=== PATIENT | female | born 1970 | race Caucasian/White ===

== ENCOUNTER 2018-02-13 21:06 | Emergency (ER) | payer SELFPAY ==
[2018-02-13 21:15] VITALS: BP 143/64
== END 2018-02-14 02:00 | disposition left against medical advice (07) ==
LOC: EDBD → ED 21:06
DX: K08.89 Other specified disorders of teeth and supporting structures (principal); Z53.21 Procedure and treatment not carried out due to patient leaving prior to being seen by health care provider

== ENCOUNTER 2018-06-30 08:01 | Emergency (ER) | payer SELFPAY ==
[2018-06-30] MEDS ORDERED: ASPIRIN PO ONE (08:26)
[2018-06-30 08:48] LABS: Basophils % (Auto) 0.6 % (0.0-1.8); Eosinophils # (Auto) 0.4 K/mm3 (0.0-0.4); Eosinophils % (Auto) 4.4 % (0.0-4.3); Hematocrit 37.5 % (30.3-42.9); Hemoglobin 12.8 gm/dl (10.1-14.3); Lymphocytes # (Auto) 1.9 K/mm3 (1.2-5.4); Lymphocytes % (Auto) 23.8 % (13.4-35.0); Mean Corpuscular HGB Conc 34 % (30-34); Mean Corpuscular Hemoglobin 27 pg (28-32); Mean Corpuscular Volume 80 fl (79-97); Monocytes # (Auto) 0.6 K/mm3 (0.0-0.8); Monocytes % (Auto) 7.5 % (0.0-7.3); Platelet Count 310 K/mm3 (140-440); Red Blood Count 4.71 M/mm3 (3.65-5.03); Red Cell Distribution Width 15.9 % (13.2-15.2)
[2018-06-30 09:02] LABS: BUN/Creatinine Ratio 18; Blood Urea Nitrogen 11 mg/dL (7-17); Calcium 9.2 mg/dL (8.4-10.2); Hemolysis Index 0
--- NOTE | 2018-06-30 09:39 | XRay Report ---
ROUTINE CHEST, TWO VIEWS: HISTORY: chest pain. The trachea, heart, mediastinal contour, lung levy and bony thorax are unremarkable. IMPRESSION: Unremarkable chest x-ray.
[2018-06-30] MEDS ORDERED: PEPCID IV ONE (10:00)
[2018-06-30] MEDS ORDERED: TORADOL IV ONE (10:00)
--- NOTE | 2018-06-30 10:03 | Emergency Department Report ---
Blank Doc - Documentation Documentation: Patient is a 48-year-old female who is presenting with multiple complaints. Patient states approximately 2 days ago she started getting some pain in her left back that that has radiated to underneath the left axilla radiating to the chest. Patient states she feels pain in her left upper extremity as well. Patient feels very nervous and anxious. Patient states the pain has been constant. Patient states there is some pain when she takes a deep breath as well. Patient denies nausea vomiting and diarrhea. Patient now also has some lower abdominal discomfort as well. She denies dysuria. On focused physical exam patient's lungs are clear heart tones within normal limits abdomen is soft and tender in the suprapubic region. Patient had a cardiac workup started from triage which the initial workup has been negative. Patient has a negative troponin EKG is within normal limits as well as a normal chest x-ray. The patient does appear to be in moderate distress secondary to pain. Because of the patient's pain in the chest radiating to the back a CTA will be ordered and the CT also will be done of the abdomen and pelvis with contrast as well.
--- NOTE | 2018-06-30 11:08 | Emergency Department Report ---
ED Chest Pain HPI - General Chief Complaint: Chest Pain Stated Complaint: LEFT ARM/CHEST PAIN Time Seen by Provider: 06/30/18 09:49 Source: patient, family Mode of arrival: Wheelchair Limitations: No Limitations - History of Present Illness Initial Comments: Patient is a 48-year-old female who is presenting with multiple complaints. Patient states approximately 2 days ago she started getting some pain in her left back that that has radiated to underneath the left axilla radiating to the chest. Patient states she feels pain in her left upper extremity as well. Patient feels very nervous and anxious. Patient states the pain has been constant. Patient states there is some pain when she takes a deep breath as well. Patient denies nausea vomiting and diarrhea. Patient now also has some lower abdominal discomfort as well. She denies dysuria. Reports pain 9/10 crampy, achy and sharp. No alleviating or exacerbating factors. MD Complaint: chest pain Onset/Timin -: days(s) Onset: during rest Pain Location: left chest Pain Radiation: LUE, back, abdomen, other (patient also reports pain to left leg.) Severity: severe Severity scale (0 -10): 9 Quality: aching, sharp, other (cramp in) Improves With: nothing Worsens With: nothing Context: other (none) re: denies: nausea, vomting, diaphoresis, dyspnea, sense of impending doom Other Symptoms: burping. denies: cough, fever, syncope, rash, palpitations Treatments Prior to Arrival: none Aspirin use within the Past 7 Days: (0) No - Related Data On Oral Contraceptives: No Previous Rx's Medication Instructions Recorded Last Taken Type Acetaminophen [Acetaminophen ER] 650 mg PO Q8H PRN #15 tablet.er 06/30/18 Unknown Rx Famotidine [Pepcid] 20 mg PO BID 15 Days #30 tablet 06/30/18 Unknown Rx Allergies Allergy/AdvReac Type Severity Reaction Status Date / Time No Known Allergies Allergy Verified 02/13/18 21:12 Heart Score - HEART Score History: Slightly suspicious EKG: Normal Age: 45-65 Risk factors: No known risk factors Troponin: < normal limit HEART Score: 1 ED Review of Systems ROS: Stated complaint: LEFT ARM/CHEST PAIN Other details as noted in HPI Constitutional: denies: chills, fever Eyes: denies: eye pain ENT: denies: throat pain, congestion Respiratory: denies: cough, shortness of breath, SOB with exertion, SOB at rest , stridor, wheezing Cardiovascular: chest pain. denies: palpitations, dyspnea on exertion, orthopnea, edema, syncope Gastrointestinal: abdominal pain. denies: nausea, vomiting, diarrhea, constipation, hematemesis, melena, hematochezia Genitourinary: denies: urgency, dysuria, frequency, hematuria, discharge Musculoskeletal: back pain, arthralgia. denies: joint swelling Skin: denies: rash, lesions Neurological: headache. denies: weakness, numbness, paresthesias, abnormal gait , vertigo ED Past Medical Hx - Past Medical History Previous Medical History?: Yes Additional medical history: Chronic back pain - Surgical History Past Surgical History?: Yes Hx Appendectomy: Yes - Family History Family history: hypertension - Social History Smoking Status: Never Smoker Substance Use Type: Non Opiate Pain (patient reports that she took some Tylenol but it did not help her pain.) - Medications Home Medications: Home Medications Medication Instructions Recorded Confirmed Last Taken Type Acetaminophen [Acetaminophen ER] 650 mg PO Q8H PRN #15 tablet.er 06/30/18 Unknown Rx Famotidine [Pepcid] 20 mg PO BID 15 Days #30 tablet 06/30/18 Unknown Rx ED Physical Exam - General Limitations: No Limitations General appearance: alert, in no apparent distress - Head Head exam: Present: atraumatic, normocephalic, normal inspection, other (normal exam) - Eye Eye exam: Present: normal appearance, PERRL, EOMI. Absent: nystagmus Pupils: Present: normal accommodation - ENT ENT exam: Present: normal exam, normal orophraynx, mucous membranes moist, TM's normal bilaterally, normal external ear exam - Neck Neck exam: Present: normal inspection, full ROM, other (no C-spine tenderness). Absent: tenderness, lymphadenopathy - Respiratory Respiratory exam: Present: normal lung sounds bilaterally, chest wall tenderness (left rib cage below left breast.). Absent: respiratory distress - Cardiovascular Cardiovascular Exam: Present: regular rate, normal rhythm, normal heart sounds. Absent: systolic murmur, diastolic murmur - GI/Abdominal GI/Abdominal exam: Present: soft, tenderness (mid suprapubic area.), normal bowel sounds. Absent: distended, guarding, rebound, rigid, organomegaly, mass, hernia - Extremities Exam Extremities exam: Present: normal inspection, full ROM, normal capillary refill , other (No cce. + 2 pulses in all extremities, no neurovascular compromise. No joint effusion, crepitus, redness or swelling.). Absent: tenderness, pedal edema, joint swelling, calf tenderness - Neurological Exam Neurological exam: Present: alert, oriented X3, normal gait, reflexes normal. Absent: motor sensory deficit - Psychiatric Psychiatric exam: Present: normal affect, normal mood - Skin Skin exam: Present: warm, dry, intact, normal color. Absent: rash ED Course Vital Signs 06/30/18 06/30/18 06/30/18 08:20 10:19 10:49 Temperature 98.6 F Pulse Rate 78 Respiratory 20 18 18 Rate Blood Pressure 137/93 Blood Pressure [Left] O2 Sat by Pulse 97 Oximetry 06/30/18 12:55 Temperature 97.8 F Pulse Rate 67 Respiratory 18 Rate Blood Pressure Blood Pressure 113/43 [Left] O2 Sat by Pulse 100 Oximetry Vital Signs 06/30/18 06/30/18 06/30/18 08:20 10:19 10:49 Temperature 98.6 F Pulse Rate 78 Respiratory 20 18 18 Rate Blood Pressure 137/93 Blood Pressure [Left] O2 Sat by Pulse 97 Oximetry 06/30/18 12:55 Temperature 97.8 F Pulse Rate 67 Respiratory 18 Rate Blood Pressure Blood Pressure 113/43 [Left] O2 Sat by Pulse 100 Oximetry - Reevaluation(s) Reevaluation #1: 06/30/18 12:11 Patient given aspirin 325 mg by mouth, Toradol 30 mg IV and Pepcid 20 mg IV. Patient says she feels better. Still awaiting diagnostics GABRIEL score - Gabriel Score Age > 65: (0) No Aspirin use within the Past 7 Days: (0) No 3 or more CAD Risk Factors: (0) No 2 or more Angina events in past 24 hrs: (0) No Known CAD with more than 50% Stenosis: (0) No Elevated Cardiac Markers: (0) No ST Deviation Greater than 0.5mm: (0) No GABRIEL Score: 0 ED Medical Decision Making - Lab Data Result diagrams: 06/30/18 08:37 06/30/18 08:37 Lab Results 06/30/18 06/30/1806/30/18 Range/Units 08:34 08:37 08:37 WBC 8.0 (4.5-11.0) K/mm3 RBC 4.71 (3.65-5.03) M/mm3 Hgb 12.8 (10.1-14.3) gm/dl Hct 37.5 (30.3-42.9) % MCV 80 (79-97) fl MCH 27 L (28-32) pg MCHC 34 (30-34) % RDW 15.9 H (13.2-15.2) % Plt Count 310 (140-440) K/mm3 Lymph % (Auto) 23.8 (13.4-35.0) % [place] % (Auto) 7.5 H (0.0-7.3) % Eos % (Auto) 4.4 H (0.0-4.3) % Baso % (Auto) 0.6 (0.0-1.8) % Lymph # 1.9 (1.2-5.4) K/mm3 [place] # 0.6 (0.0-0.8) K/mm3 Eos # 0.4 (0.0-0.4) K/mm3 Baso # 0.0 (0.0-0.1) K/mm3 Seg Neutrophils % 63.7 (40.0-70.0) % Seg Neutrophils # 5.1 (1.8-7.7) K/mm3 Sodium 135 L (137-145) mmol/L Potassium 3.8 (3.6-5.0) mmol/L Chloride 98.0 (98-107) mmol/L Carbon Dioxide 27 (22-30) mmol/L Anion Gap 14 mmol/L BUN 11 (7-17) mg/dL Creatinine 0.6 L (0.7-1.2) mg/dL Estimated GFR > 60 ml/min BUN/Creatinine Ratio 18 % Glucose 120 H (65-100) mg/dL Calcium 9.2 (8.4-10.2) mg/dL Troponin T < 0.010 (0.00-0.029) ng/mL HCG, Qual Negative (Negative) Urine Color (Yellow) Urine Turbidity (Clear) Urine pH (5.0-7.0) Ur Specific Eagan (1.003-1.030) Urine Protein (Negative) mg/dL Urine Glucose (UA) (Negative) mg/dL Urine Ketones (Negative) mg/dL Urine Blood (Negative) Urine Nitrite (Negative) Urine Bilirubin (Negative) Urine Urobilinogen (<2.0) mg/dL Ur Leukocyte Esterase (Negative) Urine WBC (Auto) (0.0-6.0) /HPF Urine RBC (Auto) (0.0-6.0) /HPF U Epithel Cells (Auto) (0-13.0) /HPF 06/30/18 06/30/18 Range/Units 11:26 11:42 WBC (4.5-11.0) K/mm3 RBC (3.65-5.03) M/mm3 Hgb (10.1-14.3) gm/dl Hct (30.3-42.9) % MCV (79-97) fl MCH (28-32) pg MCHC (30-34) % RDW (13.2-15.2) % Plt Count (140-440) K/mm3 Lymph % (Auto) (13.4-35.0) % [place] % (Auto) (0.0-7.3) % Eos % (Auto) (0.0-4.3) % Baso % (Auto) (0.0-1.8) % Lymph # (1.2-5.4) K/mm3 [place] # (0.0-0.8) K/mm3 Eos # (0.0-0.4) K/mm3 Baso # (0.0-0.1) K/mm3 Seg Neutrophils % (40.0-70.0) % Seg Neutrophils # (1.8-7.7) K/mm3 Sodium (137-145) mmol/L Potassium (3.6-5.0) mmol/L Chloride (98-107) mmol/L Carbon Dioxide (22-30) mmol/L Anion Gap mmol/L BUN (7-17) mg/dL Creatinine (0.7-1.2) mg/dL Estimated GFR ml/min BUN/Creatinine Ratio % Glucose (65-100) mg/dL Calcium (8.4-10.2) mg/dL Troponin T < 0.010 (0.00-0.029) ng/mL HCG, Qual (Negative) Urine Color Straw (Yellow) Urine Turbidity Clear (Clear) Urine pH 6.0 (5.0-7.0) Ur Specific Eagan 1.021 (1.003-1.030) Urine Protein <15 mg/dl (Negative) mg/dL Urine Glucose (UA) Neg (Negative) mg/dL Urine Ketones Neg (Negative) mg/dL Urine Blood Neg (Negative) Urine Nitrite Neg (Negative) Urine Bilirubin Neg (Negative) Urine Urobilinogen < 2.0 (<2.0) mg/dL Ur Leukocyte Esterase Neg (Negative) Urine WBC (Auto) < 1.0 (0.0-6.0) /HPF Urine RBC (Auto) < 1.0 (0.0-6.0) /HPF U Epithel Cells (Auto) 1.0 (0-13.0) /HPF - EKG Data -: EKG Interpreted by Me (attending physician) EKG shows normal: sinus rhythm (69 beats per minute) Rate: normal - EKG Data Interpretation: no acute changes, normal EKG - Radiology Data Radiology results: report reviewed Patient had CT scan of the abdomen and pelvis with contrast, CTA chest, x-ray of the chest which were dictated by radiologist and reports reviewed by myself. See details below. : 1970 Acct:[id number] Age/Sex: 48 / F ADM Date: 06/30/18 Loc: ED Attending Dr: Ordering Physician: LUIZ ASHBY MD Date of Service: 06/30/18 Procedure(s): XR chest routine 2V Accession Number(s): [id number] cc: ED MD ISMA Fluoro Time In Minutes: ROUTINE CHEST, TWO VIEWS: HISTORY: chest pain. The trachea, heart, mediastinal contour, lung browne and bony thorax are unremarkable. IMPRESSION: Unremarkable chest x-ray. Transcribed By: TTR Dictated By: LUZ MARIA TAVARES JR, MD Electronically Authenticated By: LUZ MARIA TAVARES JR, MD Signed Date/Time: 06/30/18937 DD/ 7 TD/TT: 06/30/18937 Patient: GEORGIE RIVERA MR#: [id number] : 1970 Acct:[id number] Age/Sex: 48 / F ADM Date: 06/30/18 Loc: ED Attending Dr: Ordering Physician: OCTAVIO TOLBERT MD Date of Service: 06/30/18 Procedure(s): CT abdomen pelvis w con Accession Number(s): [id number] cc: OCTAVIO TOLBERT MD CT ABDOMEN PELVIS WITH CONTRAST: HISTORY: Lower abdominal pain. COMPARISON: none. TECHNIQUE: Helical CT in 1.25mm intervals following IV contrast. Sagittal and coronal reconstructions. FINDINGS: Liver: Normal. Biliary system: Normal. Pancreas: Normal. Spleen: Normal. Kidneys/ureters/bladder: Normal. Adrenal glands: Normal. Aorta: Normal. Intestines: Within normal limits given no oral contrast was administered. Appendix: Not confidently identified, correlate with surgical history. Pelvic viscera: A 4.8 cm partially calcified fibroid is identified in the uterine fundus. The adnexa are unremarkable. Ascites: None. Adenopathy: None. Musculoskeletal: Intact. Moderate degenerative disc disease is noted at L5-S1. IMPRESSION: No acute process is identified in the abdomen or pelvis. Uterine fibroid. Degenerative changes at L5-S1. Transcribed By: TTR Dictated By: LUZ MARIA TAVARES JR, MD Electronically Authenticated By: LUZ MARIA TAVARES JR, MD Signed Date/Time: 06/30/18 113 DD/ 113 TD/TT: 06/30/181136 Patient: GEORGIE RIVERA MR#: [id number] : 1970 Acct:[id number] Age/Sex: 48 / F ADM Date: 06/30/18 Loc: ED Attending Dr: Ordering Physician: OCTAVIO TOLBERT MD Date of Service: 06/30/18 Procedure(s): CT angio chest Accession Number(s): [id number] cc: OCTAVIO TOLBERT MD CTA CHEST: HISTORY: Pleuritic chest pain radiating to back. COMPARISON: none. TECHNIQUE: Helical CT in 1.25mm intervals following IV contrast. Pulmonary embolus protocol. Sagittal and coronal reformatted images. Rotational MIP images. FINDINGS: Contrast bolus is satisfactory. No pulmonary embolus is identified. Thyroid gland: Normal. Tracheobronchial tree: Normal. Esophagus: Normal. Heart: Normal. Pericardium: Normal. Mediastinum: Normal. Lung Browne: normal. Pleural Spaces: Normal. Musculoskeletal: Normal. IMPRESSION: No evidence for pulmonary embolus. Unremarkable CT chest with contrast. Transcribed By: TTR Dictated By: LUZ MARIA TAVARES JR, MD Electronically Authenticated By: LUZ MARIA TAVARES JR, MD Signed Date/Time: 06/30/18 1135 DD/ 1134 TD/TT: 06/30/18 1135 - Medical Decision Making Patient presented to the emergency room with complaints in here to be seen. Diagnosis: Diagnostics: X-ray of chest reveals no acute cardiopulmonary processes, CT scan with IV contrast. No acute processes but patient does have uterine fibroids. CTA chest reveals no acute findings to include pulmonary embolism. Reports dictated by radiologist and reviewed by myself. ; CBC, CMP, lipase with minimal abnormalities, urinalysis normal values, troponin normal. test is negative Assessment/plan 1: Atypical chest pain with radiation into back and left forearm-EKG normal sinus rhythm, troponin normal, CTA - findings. Sent home on Tylenol plain 2: Abdominal pain-CT of the abdomen and pelvis without any acute findings patient with fibroid. Patient received Toradol 30 mg IV emergency room with 3: Dyspepsia-patient is feeling better after Pepcid 20 mg IV. Sent home on Pepcid Discussed the patient and laboratory results, diagnosis, CT scan and x-ray results. She voiced understanding and also give her information medication and treatment plan .she does not have a primary care physician until she can follow up with [facility] in 2 days with primary care physician. Patient's symptoms has resolved and she is feeling better after burping continuously. Vital signs are stable she is afebrile and she was discharged home in stable condition to follow up with cardiology, gastroenterology and [facility]. Given prescription for Tylenol plain and Pepcid. - Differential Diagnosis ACS, PE, PNA, pleurisy, UTI, acid reflux Critical care attestation.: If time is entered above; I have spent that time in minutes in the direct care of this critically ill patient, excluding procedure time. ED Disposition Clinical Impression: Atypical chest pain, Dyspepsia Abdominal pain Qualifiers: Abdominal location: generalized Qualified Code(s): R10.84 - Generalized abdominal pain Uterine fibroid Qualifiers: Uterine leiomyoma location: unspecified location Qualified Code(s): D25.9 - Leiomyoma of uterus, unspecified Disposition: DC-01 TO HOME OR SELFCARE Is pt being admited?: No Does the pt Need Aspirin: No Condition: Stable Instructions: Chest Pain (ED), Gastroesophageal Reflux Disease (ED), Abdominal Pain (ED) Additional Instructions: Please see referral to cardiology, gastroenterology and primary care doctor follow-up in 2 days. Take Pepcid twice daily and some help with acid reflux Condition worsens, please return to emergency room Take tramadol for pain but to not drive or operatie machinery while taking this medication as as this causes drowsiness Prescriptions: Acetaminophen [Acetaminophen ER] 650 mg PO Q8H PRN #15 tablet.er PRN Reason: for left hand pain Famotidine [Pepcid] 20 mg PO BID 15 Days #30 tablet Referrals: PRIMARY CAREMD [Primary Care Provider] - 3-5 Days [facility] [Outside] - 07/02/18 ANALIA VILLALPANDO MD [Staff Physician] - 07/02/18 [facility] [Provider Group] - 07/02/18 Forms: Work/School Release Form(ED)
--- NOTE | 2018-06-30 11:36 | Cat Scan Report ---
CTA CHEST: HISTORY: Pleuritic chest pain radiating to back. COMPARISON: none. TECHNIQUE: Helical CT in 1.25mm intervals following IV contrast. Pulmonary embolus protocol. Sagittal and coronal reformatted images. Rotational MIP images. FINDINGS: Contrast bolus is satisfactory. No pulmonary embolus is identified. Thyroid gland: Normal. Tracheobronchial tree: Normal. Esophagus: Normal. Heart: Normal. Pericardium: Normal. Mediastinum: Normal. Lung Browne: normal. Pleural Spaces: Normal. Musculoskeletal: Normal. IMPRESSION: No evidence for pulmonary embolus. Unremarkable CT chest with contrast.
--- NOTE | 2018-06-30 11:38 | Cat Scan Report ---
CT ABDOMEN PELVIS WITH CONTRAST: HISTORY: Lower abdominal pain. COMPARISON: none. TECHNIQUE: Helical CT in 1.25mm intervals following IV contrast. Sagittal and coronal reconstructions. FINDINGS: Liver: Normal. Biliary system: Normal. Pancreas: Normal. Spleen: Normal. Kidneys/ureters/bladder: Normal. Adrenal glands: Normal. Aorta: Normal. Intestines: Within normal limits given no oral contrast was administered. Appendix: Not confidently identified, correlate with surgical history. Pelvic viscera: A 4.8 cm partially calcified fibroid is identified in the uterine fundus. The adnexa are unremarkable. Ascites: None. Adenopathy: None. Musculoskeletal: Intact. Moderate degenerative disc disease is noted at L5-S1. IMPRESSION: No acute process is identified in the abdomen or pelvis. Uterine fibroid. Degenerative changes at L5-S1.
[2018-06-30 11:54] LABS: Bilirubin,Urine NEG (Negative); Blood,Urine NEG (Negative); Color,Urine Straw (Yellow); Protein,Urine <15 mg/dL mg/dL (Negative); RBC,Urine < 1.0 /HPF (0.0-6.0); Urobilinogen,Urine < 2.0 mg/dL (<2.0); WBC,Urine < 1.0 /HPF (0.0-6.0)
[2018-06-30 12:57] VITALS: BP 113/43
== END 2018-06-30 12:57 | disposition home or self-care (01) ==
LOC: ED 08:01
DX: R07.89 Other chest pain (principal); R10.13 Epigastric pain; D25.9 Leiomyoma of uterus, unspecified
CPT/HCPCS: 36415; 71046; 71275; 74177; 80048; 81001; 84484; 84703; 85025; 93005; 93010; 96374; 96375; 99285; J1885; Q9967

== ENCOUNTER 2018-07-01 13:11 | Emergency (ER) | payer SELFPAY ==
--- NOTE | 2018-07-01 19:23 | Emergency Department Report ---
ED General Adult HPI - General Chief complaint: Headache Stated complaint: RIDE SIDE PAIN/NUMB Time Seen by Provider: 07/01/18 19:22 Source: patient, EMS Mode of arrival: Ambulatory Limitations: No Limitations - History of Present Illness Initial comments: 48 0 female comes in for complaint of right sided headache with burning sensation since this morning patient reports that she had numbness to the right upper lip which has resolved. She still complains of black spots that she sees in her vision. She has no neuro deficits noted no slurred speech and no facial droop or unequal proposal specialist strength per triage nurse. Patient was seen here yesterday for gastritis. Patient reports that the headache has improved numbness has resolved denies any recent trauma no recent eye trauma has not had an eye exam long time. She does admit to nausea. -: This morning Location: eyes Improves with: none Associated Symptoms: denies other symptoms Treatments Prior to Arrival: none - Related Data Previous Rx's Medication Instructions Recorded Last Taken Type Acetaminophen [Acetaminophen ER] 650 mg PO Q8H PRN #15 tablet.er 06/30/18 Unknown Rx Famotidine [Pepcid] 20 mg PO BID 15 Days #30 tablet 06/30/18 Unknown Rx Ondansetron [Zofran ODT TAB] 4 mg PO TID #9 tab.rapdis 07/01/18 Unknown Rx Allergies Allergy/AdvReac Type Severity Reaction Status Date / Time No Known Allergies Allergy Verified 02/13/18 21:12 ED Review of Systems ROS: Stated complaint: RIDE SIDE PAIN/NUMB Other details as noted in HPI Comment: All other systems reviewed and negative Eyes: vision change (black floaters I) Neurological: headache (headache right side resolved), numbness (numbness to right upper lip resolved) ED Past Medical Hx - Past Medical History Additional medical history: Chronic back pain in pain management, sinus - Surgical History Hx Appendectomy: Yes - Social History Smoking Status: Never Smoker Substance Use Type: Prescribed - Medications Home Medications: Home Medications Medication Instructions Recorded Confirmed Last Taken Type Acetaminophen [Acetaminophen ER] 650 mg PO Q8H PRN #15 tablet.er 06/30/18 Unknown Rx Famotidine [Pepcid] 20 mg PO BID 15 Days #30 tablet 06/30/18 Unknown Rx Ondansetron [Zofran ODT TAB] 4 mg PO TID #9 tab.rapdis 07/01/18 Unknown Rx ED Physical Exam - General Limitations: No Limitations - ENT ENT exam: Present: mucous membranes moist - Respiratory Respiratory exam: Present: normal lung sounds bilaterally. Absent: respiratory distress - Cardiovascular Cardiovascular Exam: Present: regular rate, normal rhythm. Absent: systolic murmur, diastolic murmur, rubs, gallop - Expanded Neurological Exam Expanded Cranial nerves: EOM's Intact: Normal, Gag Reflex: Normal, Tongue Deviation: Normal, Nystagmus: Normal, Facial Sensation: Normal, Facial Palsy with Forehead Movement: Normal, Facial Palsy without Forehead Movement: Normal Cerebellar function: Finger to Nose: Normal, Heel to Bryant: Normal, Romberg: Normal Upper motor neuron: Jason Neglect: Normal, Pronator Drift: Normal, Babinski Sign : Normal, Sensory Extinction: Normal Sensory exam: Upper Extremity Light Touch: Normal, Upper Extremity Pin Prick: Normal, Upper Extremity Temperature: Normal, UE 2 Point Discrimination: Normal, Lower Extremity Light Touch: Normal, Lower Extremity Pin Prick: Normal, Lower Extremity Temperature: Normal, LE 2 Point Discrimination: Normal Motor strength exam: RUE: 5, LUE: 5, RLE: 5, LLE: 5 Best Eye Response (Melo): (4) open spontaneously Best Motor Response (Melo): (6) obeys commands Best Verbal Response (Melo): (5) oriented Melo Total: 15 - Psychiatric Psychiatric exam: Present: normal affect, normal mood - Skin Skin exam: Present: warm, dry, intact, normal color. Absent: rash ED Course Vital Signs 07/01/18 13:31 Temperature 99 F Pulse Rate 87 Respiratory 20 Rate Blood Pressure 122/78 O2 Sat by Pulse 95 Oximetry ED Medical Decision Making - Medical Decision Making Patient has been evaluated by this provider in fast track. Patient was given Zofran for nausea Discussed patient appears that she has a retinal detachment of her right eye. Discussed the patient that it is imperative that she is followed up within 24 hours after the research program intern. I will list several for her convenience. Patient verbalizes understanding Critical care attestation.: If time is entered above; I have spent that time in minutes in the direct care of this critically ill patient, excluding procedure time. ED Disposition Clinical Impression: Retinal detachment Qualifiers: Laterality: right Qualified Code(s): H33.21 - Serous retinal detachment, right eye Disposition: DC-01 TO HOME OR SELFCARE Is pt being admited?: No Does the pt Need Aspirin: No Condition: Stable Instructions: Choroidal Hemangioma (ED) Additional Instructions: Please take antinausea medicine as prescribed and as needed. It is very important for you to follow up with an research program intern within 24 hours. I have listed several below for your convenience. Prescriptions: Ondansetron [Zofran ODT TAB] 4 mg PO TID #9 tab.rapdis Referrals: PRIMARY CAREMD [Primary Care Provider] - 3-5 Days MARYA REDD MD [Staff Physician] - 3-5 Days [facility] [Provider Group] - 3-5 Days [facility], [facility] [Provider Group] - 3-5 Days Forms: Work/School Release Form(ED)
[2018-07-01] MEDS ORDERED: ZOFRAN ODT PO ONE (19:56)
[2018-07-01 21:25] VITALS: BP 118/74
== END 2018-07-01 21:25 | disposition home or self-care (01) ==
LOC: ED 13:11
DX: H33.21 Serous retinal detachment, right eye (principal); G89.29 Other chronic pain; Z90.49 Acquired absence of other specified parts of digestive tract
CPT/HCPCS: 99283; Q0162